=== PATIENT | male | born 1950 | race Caucasian/White ===

== ENCOUNTER → 2016-12-20 07:40 | Day surgery (SDC) | payer OTHER ==
--- NOTE | 2016-12-05 15:08 | HP ---
CC: Dr. Travon Grayson * HISTORY AND PHYSICAL: DATE OF PLANNED ADMISSION/SURGERY: 12/20/16 HISTORY OF PRESENT ILLNESS: Mr. Munoz is a 66-year-old white male who is admitted with prostate enlargement, bladder outlet obstruction, and a 2 cm bladder calculus for cystoscopy and cystolitholapaxy. I have been following Mr. Munoz for the last several years because of prostate enlargement and bladder outlet obstruction. He has been maintained on finasteride and tamsulosin 0.4 mg daily. He has been having on and off episodes of microhematuria. In June 2016 because of abdominal pain, he had a CT of the abdomen and pelvis with intravenous contrast. The study showed normal kidneys and ureters without any hydronephrosis. The prostate looked enlarged. There was also a 2 cm calculus noted in the bladder. Because the patient was not too bothered by his voiding symptoms, he was managed conservatively. On his recent reevaluation, he has been having episodes of urgency and frequency and had persistent microscopic hematuria and he had a recent episode of gross hematuria. His urinalysis continued to show microhematuria, but no infection. The patient had a cystoscopy in the office, which confirmed the presence of a 2 cm calculus in the base of the bladder. There were no other bladder abnormalities noted. The prostate was enlarged and vascular with a large median lobe. He was evaluated for bladder emptying and postvoid bladder ultrasound showed minimal residual urine. Because of the above history and findings, the patient is admitted for cystolitholapaxy. Because he is responding to the medical treatment with the tamsulosin and the finasteride and he is emptying his bladder adequately, there is no indication to perform a prostatectomy at this time. PAST MEDICAL HISTORY AND SYSTEM REVIEW: The patient is morbidly obese. He is otherwise in good health. He is on no other chronic medications and he denies any allergies to medications. He denies any cardiac or pulmonary diseases or symptoms. He is a nonsmoker. 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 PHYSICAL EXAMINATION GENERAL: Pleasant morbidly obese white male. VITAL SIGNS: Blood pressure 130/90, pulse of 60. HEART: Regular and rhythmic. No murmurs. LUNGS: Clear. ABDOMEN: Soft. No masses, no tenderness, and no CVA tenderness. GENITALIA: External genitalia are normal. RECTAL: Exam showed an enlarged, but nonsuspicious prostate. IMPRESSION: 1. Benign prostatic hyperplasia responding to medical treatment with finasteride and tamsulosin and good bladder emptying. 2. Recurrent episodes of gross hematuria with persistent microscopic hematuria caused by a 2 cm symptomatic bladder calculus and negative upper tracts by CT with IV contrast. 3. Morbid obesity. PLAN: 1. The patient will be seeing Dr. Grayson for preoperative medical clearance. 2. Plan is for cystoscopy and cystolitholapaxy. 3. I discussed the procedure with the patient. He understands that he has an increased risk of going into urinary retention following the procedure. He will likely require to stay on the Roland catheter for 2 to 3 days postoperatively to avoid the episodes of postoperative retention. 4. I discussed the above plans with the patient and his questions were answered. [id number]/[facility] #: [id number] MTDD
[~2016-12-20 07:40] MED LIST: Buffered Lidocaine 0.9% SYRIN* 5 ML/SYR SYRINGE INTRADERM ONE; DiMENhydriNATE IV* 50 MG/ML VIAL IV PUSH PRN; Diatrizoate -DILUTE(CONTRAST) 300 ML BOTTLE BLADDER ONE; HYDROcodone/ACETAMIN 5-325 MG* 1 TAB PO PRN; HYDROmorphone* 1 MG/ML 1 ML SYR IV PRN; Iohexol 180 (CONTRAST) 10 ML SDV IV ONE; Midazolam* 1 MG/ML 5 ML VIAL (5 MG) ONE; Ondansetron INJ* 2 MG/ML VIAL IV PRN; Propofol* 10 MG/ML 20 ML BTL IV PUSH ONE; cefTRIAXone(*) 2 GM ADDV.VIAL IVPB ONE; fentaNYL* 50 MCG/ML 2 ML VIAL (100 MCG VIAL) IV PRN; fentaNYL* 50 MCG/ML 2 ML VIAL (100 MCG VIAL) ONE; oxyCODONE TAB* 5 MG TAB PO PRN
[2016-12-20 12:38] VITALS: BP 138/77
--- NOTE | 2016-12-21 06:58 | OP ---
CC: Dr. Travon Grayson OPERATIVE REPORT: DATE OF OPERATION: 12/20/16 DATE OF : 48 SURGEON: Zachary Conner MD ANESTHESIOLOGIST: Dr. Manfred Ambriz. ANESTHESIA: General. PRE-OP DIAGNOSES: 1. Benign prostatic hyperplasia. 2. Bladder calculus (2 cm). POST-OP DIAGNOSES: 1. Benign prostatic hyperplasia. 2. Bladder calculus (2 cm). OPERATIVE PROCEDURES: 1. Cystoscopy. 2. Cystolitholapaxy. INDICATIONS FOR PROCEDURE: Mr. Munoz is a 66-year-old white male who has a long history of prostate enlargement and bladder outlet obstruction and who has been maintained on tamsulosin and finasteride. He has had on and off episodes of hematuria and was worked up, including a cystoscopy which showed a 2-cm bladder calculus. His upper tracts were normal. He responded well to the tamsulosin and finasteride, and his postvoid residual has been minimal. Because of the above history and findings, the patient is admitted for cystolitholapaxy. Because he is emptying his bladder well, there are no plans at this time to perform a TURP. PATHOLOGY AT CYSTOSCOPY: The penile and bulbar urethrae looked normal. The prostatic urethra measured about 3 to 3.5 cm in length and there was significant degree of obstruction by trilobar hyperplasia of the prostate. Examination of the bladder showed a 2-cm yellowish spherical calculus in the base of the bladder. There were no suspicious bladder lesions seen and no diverticula were noted. DESCRIPTION OF PROCEDURE: After successful general anesthesia, the patient was placed in the lithotomy position and was prepped and draped for a cystoscopy. Cystoscopy was then performed and the findings in the prostatic urethra and the bladder wall were noted. Using the stone-crushing forceps, the bladder was filled up. The stone was grasped and was positioned in the center of the bladder lumen away from the bladder wall. The stone was broken into multiple small fragments. Care was taken not to injure the bladder wall or the bladder neck. The stone fragments were all small enough to be evacuated through the sheath of the cystoscope. The bladder was then thoroughly irrigated and all the stone fragments were removed. A final inspection showed no residual stone fragments and intact bladder wall. The cystoscope was then removed and a size 18-Greek Roland catheter was passed inside the bladder and the balloon inflated with 10 cc of water. The patient tolerated the procedure well and left the operating room in good condition. [id number]/[facility] #: [id number] MTDCesia
== END | disposition home or self-care (01) ==
LOC: OR 07:40
PROVIDERS: ATTEND Urology
DX: N40.1 Benign prostatic hyperplasia with lower urinary tract symptoms (principal); N21.0 Calculus in bladder; R31.29 Other microscopic hematuria; R35.0 Frequency of micturition; R39.15 Urgency of urination; E66.01 Morbid (severe) obesity due to excess calories
CPT/HCPCS: 82365; 88300; J0696; J2250; J2704; J3010

== ENCOUNTER 2017-07-20 17:30 | Emergency (ER) | payer OTHER ==
[2017-07-20 19:01] VITALS: BP 147/83
[2017-07-20] MEDS ORDERED: Ibuprofen TAB* 600 MG PO ONE (19:13)
--- NOTE | 2017-07-20 20:37 | RAD ---
HISTORY: Right wrist pain and swelling, fall COMPARISONS: None VIEWS: 3, Frontal, lateral, and oblique views of the right wrist FINDINGS: BONE DENSITY: Normal. BONES: There is a comminuted nondisplaced fracture of the distal radial metaphysis with intra-articular extension. There is no displaced fracture of the styloid process of the ulna. 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 SOFT TISSUES: Unremarkable. OTHER FINDINGS: None. IMPRESSION: NONDISPLACED FRACTURES OF THE DISTAL RADIAL METAPHYSIS AND STYLOID PROCESS OF THE ULNA
--- NOTE | 2017-07-20 20:52 | UC ---
Sander Wise Stephanie, scribed for Nitish Adrian MD on 07/20/17 at 1928 . Hand/Wrist HPI - HPI Summary HPI Summary: The pt is a 67 y/o M presenting to with c/o R wrist pain s/p falling down a flight of stairs at 14:00 today. The pt reports that he tripped as he was carrying something. He states he cannot move his R second digit. The pt denies head or neck trauma. - History Of Current Complaint Chief Complaint: UCUpperExtremity Stated Complaint: INJURED WRIST Time Seen by Provider: 07/20/17 19:11 Hx Obtained From: Patient Onset/Duration: Sudden Onset, Lasting Hours - 5, Still Present Pain Intensity: 6 Pain Scale Used: 0-10 Numeric Aggravating Factor(s): Movement Alleviating Factor(s): Nothing - Allergies/Home Medications Allergies/Adverse Reactions: Allergies Allergy/AdvReac Type Severity Reaction Status Date / Time No Known Allergies Allergy Verified 07/20/17 19:01 PMH/Surg Hx/FS Hx/Imm Hx Previously Healthy: Yes - Pt denies any past medical history. - Surgical History Surgical History: None - Family History Known Family History: Positive: Unknown - Pt denies family history. - Social History Occupation: Employed Full-time Lives: With Family Alcohol Use: Occasionally Alcohol Amount: 1 DRINK/WEEK Substance Use Type: None Smoking Status (MU): Never Smoked Tobacco Have You Smoked in the Last Year: No Review of Systems Musculoskeletal: Other: - R wrist pain All Other Systems Reviewed And Are Negative: Yes Physical Exam Triage Information Reviewed: Yes Vital Signs: Initial Vital Signs Temp 97.9 F 07/20/17 18:58 Pulse 63 07/20/17 18:58 Resp 18 07/20/17 18:58 BP 147/83 07/20/17 18:58 Pulse Ox 96 07/20/17 18:58 Vital Signs Reviewed: Yes Musculoskeletal: Positive: Other: - RT FINGERS WITH NL CAP REFILL. RADIAL PULSE PRESENT. PAIN WITH ROM OF FINGERS. NO SENSATION DEFICIT - Additional Comments General: well-appearing, no pain distress Skin: warm, color reflects adequate perfusion, dry Head: normal Eyes: EOMI, YOLANDA ENT: normal Neck: supple, nontender Respiratory: CTA, breath sounds present Cardiovascular: RRR Abdomen: soft, nontender Bowel: present Musculoskeletal: R wrist swollen and tender, strength/ROM intact Neurological: normal, sensory/motor intact, A&O x3 Psychological: affect/mood appropriate Procedures - Splinting Hand-Made Type: orthoglass Splint: sugar-tong - RT WRIST/FOREARM Pre-Proc Neuro Vasc Exam: normal Post-Proc Neuro Vasc Exam: normal Diagnostics - Radiology Wrist X-ray Xray Interpretation: Positive (See Comments) Radiology Interpretation Completed By: Radiologist - NONDISPLACED FRACTURES OF THE DISTAL RADIAL METAPHYSIS AND STYLOID PROCESS OF THE ULNA Hand/Wrist Course/Dx - Course Course Of Treatment: Medications reviewed. SPLINTED IN CLINIC. F/U ORTHO. - Differential Dx/Diagnosis Provider Diagnoses: RIGHT WRIST FRACTURE Discharge - Discharge Plan Condition: Stable Disposition: HOME Prescriptions: Acetaminop/Codeine 30 MG TAB* [Tylenol/Codeine 30 MG TAB*] 1 tab PO Q6H PRN #20 tab MDD 4 PRN Reason: Pain Patient Education Materials: Wrist Fracture in Adults (ED), Splint Care (ED) Referrals: [facility] [Provider Group] Travon Grayson MD [Primary Care Provider] - Kadie Edward MD [Medical Doctor] - Additional Instructions: FOLLOW UP WITH YOUR ORTHOPEDICS. CALL TOMORROW TO ARRANGE FOLLOW UP. GET RECHECKED FOR ANY WORSENING OF YOUR CONDITION OR QUESTIONS OR CONCERNS. The documentation as recorded by the Sander rick Stephanie accurately reflects the service I personally performed and the decisions made by me, Nitish Adrian MD.
== END 2017-07-20 20:51 | disposition home or self-care (01) ==
LOC: UCEAST 17:30
DX: S52.501A Unspecified fracture of the lower end of right radius, initial encounter for closed fracture (principal); S52.614A Nondisplaced fracture of right ulna styloid process, initial encounter for closed fracture; W10.9XXA Fall (on) (from) unspecified stairs and steps, initial encounter; Y93.9 Activity, unspecified; Y92.9 Unspecified place or not applicable
CPT/HCPCS: 99212; A9270-GY; G0463